=== PATIENT | male | born 1980 | race Caucasian/White ===

== ENCOUNTER 2024-01-09 14:10 | Emergency (ER) | payer OTHER ==
[2024-01-09] MEDS ORDERED: Sodium Chloride 0.9% 1,000 ML ONE (15:07)
[2024-01-09 15:16] LABS: Anion Gap 16 mmol/L (10-20); BUN (Urea Nitrogen) 10 mg/dL (8.9-20.6); Calc. Creatinine Clearance 0 mL/min (70-130); Calcium 8.5 mg/dL (7.8-10.44); Carbon Dioxide 23 mmol/L (22-29); Chloride 100 mmol/L (98-107); Estimated GFR 81; Sodium 134 mmol/L (136-145)
[2024-01-09 15:23] LABS: Band 7 % (5-11); Eosinophils 2 % (0-10); Hematocrit 52.3 % (42.0-52.0); Hemoglobin 16.4 g/dL (14.0-18.0); Lymphocytes 21 % (21-51); MDiff Complete? YES; Mean Corpuscular HGB CONC 31.4 g/dL (32.0-36.0); Mean Corpuscular Hemoglobin 28.4 pg (27.0-31.0); Mean Corpuscular Volume 90.4 fl (78.0-98.0); Mean Platelet Volume 12.9 fL (7.4-10.4); Monocytes 3 % (0-10); Neutrophil 67 % (42-75); Platelet Adequacy Comment Appears Adequate; Platelet Count 137 10x3/uL (130-400); RBC Distribution Width 13.1 % (11.5-14.5); Red Blood Cell (RBC) Count 5.78 mill/uL (4.70-6.10)
[2024-01-09 15:24] LABS: Glucose 443 mg/dL (70-105); Potassium 4.7 mmol/L (3.5-5.1)
[2024-01-09] MEDS ORDERED: Ampicillin/Sulbactam 3 GM VIAL ONE (15:39)
[2024-01-09] MEDS ORDERED: Sodium Chloride 0.9% 100 ML ONE (15:39)
== END 2024-01-09 16:44 | disposition home or self-care (01) ==
LOC: MADERS 14:10
DX: E11.621 Type 2 diabetes mellitus with foot ulcer (principal); L97.529 Non-pressure chronic ulcer of other part of left foot with unspecified severity; E11.65 Type 2 diabetes mellitus with hyperglycemia; E11.42 Type 2 diabetes mellitus with diabetic polyneuropathy; I10 Essential (primary) hypertension; E66.9 Obesity, unspecified; F17.220 Nicotine dependence, chewing tobacco, uncomplicated; Z79.899 Other long term (current) drug therapy
CPT/HCPCS: 36416; 80048; 85025; 86140; 96361; 96365; J0295; J3490; J7050